=== PATIENT | female | born 1965 | race Caucasian/White ===

== ENCOUNTER 2023-06-23 07:04 | Outpatient (OUT) | payer OTHER, SELFPAY ==
--- NOTE | 2023-06-23 07:25 | MM_ITS ---
Patient Name: DESTINY FREY MR#: [id number] : 1965 Exam Date: 06/23/2023 Ordering Doctor: DR CLEMENTINA HUNG M.D. RADIOLOGY REPORT PROCEDURE: MM TOMOSYNTHESIS SCREENING BI COMPARISON: MG MAMM SCREEN 3D BENITO CAD, 06/03/2022. MG MAMM SCREEN BENITO W CAD, 09/24/2020. MG MAMM SCREEN BENITO W CAD, 09/10/2019. MG MAMM BENITO SCRN W CAD DIG, 12/21/2012. INDICATIONS: Screening Calculator Name NCI Breast Cancer Risk Assessment Tool 5 Year Breast Cancer Risk 2.70% Lifetime Breast Cancer Risk 17.60% Personal Breast Cancer No Personal Ovarian Cancer No Treatments Hysterectomy Family Cancers Sister with breast cancer at age 40; Mother with lung cancer at age 62; Sister with cervical cancer at age 30; Sister with cervical cancer at age 60. LOCATION: [facility] BREAST COMPOSITION: Heterogeneously dense,which may obscure small masses. FINDINGS: DIAGNOSTIC CATEGORY 2--BENIGN FINDING: RIGHT BREAST: No significant suspicious finding. Scattered benign-appearing lymph nodes are present. No significant change has occurred. LEFT BREAST: No significant suspicious finding. No significant change has occurred. RECOMMENDATIONS: ROUTINE MAMMOGRAM AND CLINICAL EVALUATION IN 12 MONTHS. PLEASE NOTE: A NORMAL MAMMOGRAM DOES NOT EXCLUDE THE POSSIBILITY OF BREAST CANCER. A CLINICALLY SUSPICIOUS PALPABLE LUMP SHOULD BE BIOPSIED. Dictated by: Diogo Kiser M.D. on 06/23/2023 at 14:30 Approved by: Diogo Kiser M.D. on 06/23/2023 at 14:34
== END 2023-06-23 07:05 | disposition home or self-care (01) ==
LOC: MAMMO 07:04
PROVIDERS: PCP Family Medicine; Visit Provider Family Medicine
DX: Z12.31 Encounter for screening mammogram for malignant neoplasm of breast (principal); Z80.3 Family history of malignant neoplasm of breast; Z80.1 Family history of malignant neoplasm of trachea, bronchus and lung; Z80.8 Family history of malignant neoplasm of other organs or systems
CPT/HCPCS: 77063; 77067